=== PATIENT | female | born 1935 | race Caucasian/White ===

== ENCOUNTER 2018-08-12 05:31 | Day surgery (SDC) | payer OTHER, BC ==
[~2018-08-12] VITALS: Ht 160 cm; Wt 77.1 kg
--- NOTE | ~2018-08-12 | O ---
[facility] [place] [address] [place] [address] OPERATIVE REPORT Name: STEVEN SIM Room #: 150-10 [facility]#: [id number] Admission: 08/12/18 Attend Phys: ALLYSSA Cai Discharge: Date of : 31 Report #: [id number] THIS REPORT FOR: //name// CC: [facility] physician/PCP Babar Gamez DATE OF SERVICE: 08/12/2018 SURGEON: Babar Gamez DPM. PREOPERATIVE DIAGNOSIS: Hammertoe, fifth digit, left foot. POSTOPERATIVE DIAGNOSIS: Hammertoe, fifth digit, left foot. PROCEDURE: Arthroplasty with pin fixation proximal interphalangeal joint, fifth toe, left foot. ANESTHESIA: Local with IV sedation. HEMOSTASIS: Ankle tourniquet 250 mmHg. ESTIMATED BLOOD LOSS: Less than 5 mL. COMPLICATIONS: None. DESCRIPTION OF PROCEDURE: The patient was taken to the OR in satisfactory condition and placed on the table in the supine position. Following satisfactory administration of IV sedation, a total of 3 mL of a 50:50 mixture of 1% plain lidocaine and 0.5% plain Marcaine was used in a digital block of the fifth toe, left foot. A well-padded ankle tourniquet was placed on the left ankle. The foot was then prepped and draped in the usual sterile manner. An Esmarch bandage was then used to exsanguinate the left foot and the ankle tourniquet was inflated to 250 mmHg. Attention was directed to the dorsal fifth toe, left foot where a linear incision was made overlying the PIP joint. The incision was deepened through sharp and blunt dissection and all bleeders were clamped and bovied as deemed necessary. The incision was carried down to the level of the extensor tendon and a transverse tenotomy was made just distal to the joint. The extensor tendon was reflected sharply from the bone and the head of the proximal phalanx was delivered from the wound. A double action bone cutter was used to excise the head of the proximal phalanx. This was reshaped and remodeled with a bone rasp. A copious sterile saline flush was performed. A 0.045 K-wire was driven from proximal to distal through the base of the middle phalanx out the end of the toe. It was then retrograded down the center of the proximal phalanx. Proper position and length of the K-wire was confirmed by fluoroscopy. The K-wire was then clamped at the distal exit site of the pin and bent at a right angle and cut appropriately for application of a Jergens ball. [facility] [address] [place] [address] OPERATIVE REPORT Name: STEVEN SIM Room #: 150-10 [facility]..#: [id number] Admission: 08/12/18 Attend Phys: ALLYSSA Cai Discharge: Date of : 31 Report #: [id number] The extensor tendon was then draped over the stump of the proximal phalanx and coapted with #3-0 Vicryl in a horizontal mattress fashion. The toe was then noted to lie in proper anatomical position and excellent reduction of the original deformity was appreciated. The skin incision was dressed with #4-0 Prolene in a horizontal mattress fashion. The skin incision was dressed with Betadine impregnated Adaptic, 4 x 4 gauze, overlying Gina and Farhad bandage and stockinette. The ankle tourniquet was released and normal vascular status returned to all digits of the left foot. The patient tolerated the procedure and anesthesia well and left the OR in satisfactory condition with vital signs stable. By: [id number] Babar Gamez DPM /yonatan
[~2018-08-12 05:31] MED LIST: ASPIR 8181 MG PO; CARBIDOPA-LEVO1 EAC7 PO; CARBIDOPA-LEVO1 EAC8 PO; GABAPENTIN 100100 MG PO; MULTIVITAMINS1 EAC7 PO; NORTRIPTYLINE H10 M1 PO; OMEPRAZOLE20 M2 PO; VERAPAMIL ER120 MG PO
[2018-08-12 07:52] LABS: CALCIUM 9.4 mg/dL (8.5-10.1); CREATININE 0.8 mg/dL (0.6-1.0); POTASSIUM 4.3 mmol/L (3.5-5.1)
[2018-08-12 11:16] VITALS: BP 117/62
== END 2018-08-12 11:10 | disposition home or self-care (01) ==
LOC: TBA 05:31 → OR 05:31
PROVIDERS: Podiatrist
DX: M20.42 Other hammer toe(s) (acquired), left foot (principal); I10 Essential (primary) hypertension; I42.2 Other hypertrophic cardiomyopathy; G62.9 Polyneuropathy, unspecified; G20 Parkinson's disease; K21.9 Gastro-esophageal reflux disease without esophagitis; M19.90 Unspecified osteoarthritis, unspecified site; Z85.828 Personal history of other malignant neoplasm of skin; Z79.899 Other long term (current) drug therapy; Z88.8 Allergy status to other drugs, medicaments and biological substances
CPT/HCPCS: 50010; 50101; 51281; 51291; 56526; 57091; 57092; 62110; 62850; 70005